=== PATIENT | female | born 1990 | race Caucasian/White ===

== ENCOUNTER 2018-11-17 16:22 | Emergency (ER) | payer SELFPAY ==
[~2018-11-17] VITALS: Ht 160 cm; Wt 90.7 kg
--- NOTE | 2018-11-17 16:32 | NUR ---
BIBRA40, FROM THE BUS STOP, HAVING PANIC ATTACK. STATES ALSO HAVING RIGHT-SIDED HEADACHE. DENIES SOB, DIZZINESS, WEAKNESS, VISION CHANGES, N/V. AOX4, AMB, VSS, RR EVEN AND UNLABORED ON RA. NO ACUTE DISTRESS NOTED. ON MONITOR AND READY FOR EVAL.
[2018-11-17] MEDS ORDERED: IBUPROFEN 600 MG TABLET PO ONE ×2 (16:43→17:00)
[2018-11-17 16:55] LABS: BASOPHILS % (AUTO) 0.2 % (0.0-2.0); EOSINOPHILS % (AUTO) 1.3 % (0.0-6.0); HEMATOCRIT 51 % (33-45); HEMOGLOBIN 16.8 g/dL (11.5-14.8); LYMPHOCYTES # (AUTO) 2.2 /CMM (0.8-4.8); LYMPHOCYTES % (AUTO) 11.6 % (20.0-44.0); MEAN CORPUSCULAR HGB CONC 33 g/dl (31.0-36.0); MEAN CORPUSCULAR VOLUME 90 fL (82-100); MONOCYTES # (AUTO) 0.7 /CMM (0.1-1.30); MONOCYTES % (AUTO) 3.6 % (2.0-12.0); NEUTROPHILS # (AUTO) 15.9 /CMM (1.8-8.9); NEUTROPHILS % (AUTO) 83.3 % (43.0-81.0); PLATELET COUNT (AUTO) 334 /CMM (150-450); RED BLOOD CELL COUNT(AUTO) 5.71 MIL/uL (4.0-5.2); WHITE BLOOD COUNT (AUTO) 19.1 K/uL (4.3-11.0)
[2018-11-17 17:15] LABS: CALCIUM, SERUM 8.5 mg/dL (8.5-10.1); CREATININE 0.8 mg/dL (0.6-1.3); POTASSIUM 3.9 mmol/L (3.5-5.1)
[2018-11-17] MEDS ORDERED: PROCHLORPERAZINE EDISYLATE 10 MG/2 ML VIAL ONE (17:51)
[2018-11-17] MEDS ORDERED: diphenhydrAMINE HCL 50 MG/ML VIAL ONE (17:51)
[2018-11-17] MEDS ORDERED: diphenhydrAMINE HCL 50 MG/ML VIAL IV ONE (18:00)
[2018-11-17] MEDS ORDERED: IV NS 0.9% 500 ML BAG IV ONE (18:00)
[2018-11-17] MEDS ORDERED: PROCHLORPERAZINE EDISYLATE 10 MG/2 ML VIAL IV ONE (18:00)
--- NOTE | 2018-11-17 18:13 | NUR ---
PT RESTING COMFORTABLY IN BED. NO COMPLAINTS AT THIS TIME. WILL CONT TO MONITOR.
--- NOTE | 2018-11-17 19:05 | NUR ---
Patient discharged to home in stable condition. Written and verbal after care instructions given. Patient verbalizes understanding of instruction.IV removed. Catheter intact and site benign. Pressure and 4x4 applied to site. No bleeding noted.
[2018-11-17 19:12] VITALS: BP 117/72
== END 2018-11-17 19:05 | disposition home or self-care (01) ==
LOC: ER 16:24
DX: R55 Syncope and collapse (principal); R51 Headache; F31.9 Bipolar disorder, unspecified
CPT/HCPCS: 36415; 80048; 85025; 93005; 96374; 96375; 99284; J0780; J1200; J7040

== ENCOUNTER 2020-09-07 07:40 | Emergency (ER) | payer OTHER ==
[~2020-09-07] VITALS: Ht 167.6 cm; Wt 99.3 kg
--- NOTE | 2020-09-07 07:56 | NUR ---
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 The patient is alert to her name at this time. Communicates verbally but the patient ahs fligts of ideas. Denies pain. In room air and denies SOB. Respiration regular and unlabored. Will continue to monitor the patient.
[2020-09-07] MEDS ORDERED: LORAZEPAM INJ 2 MG/ML VIAL ONE (08:04)
[2020-09-07] MEDS: LORAZEPAM INJ 2 MG/ML VIAL IM ONE (08:17)
--- NOTE | 2020-09-07 08:17 | NUR ---
urine collected and sent to the lab
[2020-09-07 08:40] LABS: BASOPHILS % (AUTO) 0.3 % (0.0-2.0); EOSINOPHILS % (AUTO) 0.5 % (0.0-6.0); HEMATOCRIT 42 % (33-45); HEMOGLOBIN 14.2 g/dL (11.5-14.8); LYMPHOCYTES # (AUTO) 2.3 /CMM (0.8-4.8); MEAN CORPUSCULAR HGB CONC 34 g/dl (31.0-36.0); MEAN CORPUSCULAR VOLUME 91 fL (82-100); MONOCYTES # (AUTO) 0.7 /CMM (0.1-1.30); MONOCYTES % (AUTO) 5.1 % (2.0-12.0); NEUTROPHILS # (AUTO) 9.7 /CMM (1.8-8.9); NEUTROPHILS % (AUTO) 76.1 % (43.0-81.0); PLATELET COUNT (AUTO) 272 /CMM (150-450); RED BLOOD CELL COUNT(AUTO) 4.63 MIL/uL (4.0-5.2); WHITE BLOOD COUNT (AUTO) 12.8 K/uL (4.3-11.0)
[2020-09-07 08:44] LABS: CARBON DIOXIDE 22 mmol/L (21-32); CHLORIDE 107 mmol/L (98-107); CREATININE 0.7 mg/dL (0.6-1.3); GLUCOSE 122 mg/dL (74-106); SODIUM SERUM 141 mmol/L (136-145); UREA NITROGEN, BLOOD 10 mg/dL (7-18)
[2020-09-07 08:45] LABS: BILIRUBIN,URINE Negative (NEGATIVE); COLOR,URINE YELLOW (YELLOW); LEUKOCYTE ESTERASE ,URINE Negative (NEGATIVE); NITRITE, URINE Negative (NEGATIVE); PH,URINE 5.5 (5.0-8.0); PROTEIN,URINE 30 mg/dl (NEGATIVE); UGLUCOSE Negative (NEGATIVE); UROBILINOGEN,URINE 0.2 EU/dL (0.2)
[2020-09-07 08:50] LABS: ACETAMINOPHEN 0 ug/ml (10-30); ALANINE AMINOTRANSFERASE 38 U/L (12-78); ALBUMIN 3.8 g/dL (3.4-5.0); ALCOHOL, BLOOD < 3 mg/dL (0-0); ALKALINE PHOSPHATASE 99 U/L (46-116); ASPARTATE AMINOTRANSFERASE 21 U/L (15-37); BILIRUBIN,DIRECT 0.1 mg/dL (0.0-0.2); BILIRUBIN,TOTAL 0.2 mg/dL (0.2-1.0); TOTAL PROTEIN, SERUM 7.8 g/dL (6.4-8.2)
[2020-09-07 08:54] LABS: CALCIUM, SERUM 9.4 mg/dL (8.5-10.1)
[2020-09-07 08:58] LABS: BACTERIA,URINE Moderate /HPF (None Seen); SQUAMOUS EPITHELIAL CELL,UR Moderate /HPF (None Seen); WBC,URINE 0-2 /HPF (0-3)
--- NOTE | 2020-09-07 09:44 | NUR ---
The patient is sleeping. Respiration regular and unlabored. Patient is in no apparent distress. Will continue to monitor the patient.
--- NOTE | 2020-09-07 10:36 | NUR ---
The patient is alert and oriented x3 but still with episodes of being forgetfull. Denies any distress at this time. Will continue to monitor the patient.
--- NOTE | 2020-09-07 10:59 | NUR ---
Waiting for the pharmacy to deliver Risperdal.
[2020-09-07] MEDS ORDERED: risperiDONE 0.25 MG TABLET PO ONE (11:00)
--- NOTE | 2020-09-07 11:00 | NUR ---
SS Consult: SS Consult requested for this 30-year old female who was BIBRA after the pt. was not speaking or interacting with her surroundings. The pt. is A&O X 2 and appears well-groomed. The pt. is calm & cooperative throughout interview.pt. has soft, low speech with tangential speech. Pt. is not oriented to situation or location. Pt. states that she has not been taking her psychotropic medications because she wanted a video that, brain washed me at a rastafari on how to read minds and taught me that anti-psychotic medications are bad. Pt. is delusional with possible visual hallucinations. Pt. stated, I saw my brother in the [place], with lights. Pt. is disorganized, confused and unable to plan for self-care. Per EMR, the pt.s family reported that the pt. has a hx. of Schizophrenia had been med non-compliant for about 1 month. BRITNEY called tnt line supervisorRicardo [phone] to assess this pt. Per Art, he will see this pt. FELISHA. Noted. BRITNEY notified RNWiliam.
[2020-09-07] MEDS: risperiDONE 1 MG TABLET PO ONE (11:01)
[2020-09-07] MEDS ORDERED: risperiDONE 1 MG TABLET ONE (11:01)
--- NOTE | 2020-09-07 15:24 | NUR ---
NIEVES KATZ [phone]
--- NOTE | 2020-09-07 15:28 | NUR ---
STERLING CALLED BACK AND WILL BE ON HER WAY.
--- NOTE | 2020-09-07 19:05 | NUR ---
PT EASILY AROUSABLE TO TOUCH AND MECHANICAL STIMULI, PT NOT ASNWERING QUESTIONS BUT MOANING. RESPIRATIONS EVEN AND UNLABORED. WILL CONTINUE TO MONITOR PT.
--- NOTE | 2020-09-07 19:14 | NUR ---
covid swab done and sent to the lab
--- NOTE | 2020-09-08 06:02 | NUR ---
IN BED, NOT RESPONDING WHEN SPOKEN TO. VSS.
--- NOTE | 2020-09-08 09:00 | NUR ---
THE PATIENT IS TAKING NAP, RESPONSIVE TO TACTILE STIMULI BY OPENING EYES. OFFERED BRAKFASR BUT THE PATIENT REFUSED BY COMMUNICATING MOVING HEAD. WILL CONTINUE TO MONITOR THE PATIENT.
--- NOTE | 2020-09-08 10:26 | NUR ---
PATIENT IS ACCEPTED AT [facility]. UNDER DR. HER. ROOM [address]A. PHONE # FOR REPORT [phone]
--- NOTE | 2020-09-08 10:28 | NUR ---
Pt accepted to [facility]. Accepting Psych is Dr. Morel Accepting, Tamy Hilario NP Pt will go to [place] [id number] Number for report is [phone]
--- NOTE | 2020-09-08 11:02 | NUR ---
Report given to nurse Patterson from [facility].
--- NOTE | 2020-09-08 12:17 | NUR ---
CALLED [facility] FOR TRANSPORT TO [facility] 45-60 MINUTES.
--- NOTE | 2020-09-08 13:30 | NUR ---
THE PATIENT IS TRANSFERED TO [facility] IN STABLE CONDITION AND VIA ARRANGED TRANSPO. WILL CONTINUE TO MONITOR THE PATIENT.
[2020-09-08 14:06] VITALS: BP 125/80
== END 2020-09-08 13:30 ==
LOC: ER 07:42
DX: F20.2 Catatonic schizophrenia (principal); Z20.822 Contact with and (suspected) exposure to COVID-19
CPT/HCPCS: 36415; 80048; 80076; 80143; 80307; 80320; 81001; 84703; 85025; 87086; 87426; 96372; 99285; C9803; J2060; G0480

== ENCOUNTER 2021-12-24 00:41 | Emergency (ER) | payer OTHER ==
[~2021-12-24] VITALS: Ht 160 cm; Wt 94.3 kg
[2021-12-24 01:44] VITALS: BP 123/80
[2021-12-24 03:13] LABS: BILIRUBIN,URINE NEGATIVE (NEGATIVE); COLOR,URINE YELLOW (YELLOW); LEUKOCYTE ESTERASE ,URINE MODERATE (NEGATIVE); NITRITE, URINE NEGATIVE (NEGATIVE); PH,URINE 8.5 (5.0-8.0); PROTEIN,URINE TRACE mg/dl (NEGATIVE); UGLUCOSE NEGATIVE (NEGATIVE); UROBILINOGEN,URINE 0.2 EU/dL (0.2)
[2021-12-24 03:17] LABS: BACTERIA,URINE Few /HPF (None Seen); SQUAMOUS EPITHELIAL CELL,UR Many /HPF (None Seen)
[2021-12-24] MEDS ORDERED: CEPH500T PO (03:27)
== END 2021-12-24 03:39 | disposition home or self-care (01) ==
LOC: ER 00:47
DX: N39.0 Urinary tract infection, site not specified (principal); Z79.899 Other long term (current) drug therapy
CPT/HCPCS: 81001; 84703-TC

== ENCOUNTER 2022-02-28 19:32 | Emergency (ER) | payer OTHER ==
[~2022-02-28] VITALS: Ht 160 cm; Wt 99.8 kg
[~2022-02-28 19:32] MED LIST: CEPH500T PO
--- NOTE | 2022-02-28 19:49 | NUR ---
BIBRA 61 AND [employer] FOR PSYCH EVALUATION DUE TO AGITATION. ON 5150 HOLD BY [employer]. VSS. SAFETY MEASURES IN PLACE.
[2022-02-28] MEDS ORDERED: LORAZEPAM INJ 2 MG/ML VIAL ONE (20:52)
[2022-02-28] MEDS ORDERED: HALOPERIDOL LACTATE INJ 5 MG/ML VIAL ONE (20:52)
[2022-02-28] MEDS ORDERED: diphenhydrAMINE HCL 50 MG/ML VIAL ONE (20:52)
[2022-02-28] MEDS ORDERED: diphenhydrAMINE HCL 50 MG/ML VIAL IM ONE (21:00)
[2022-02-28] MEDS ORDERED: LORAZEPAM INJ 2 MG/ML VIAL IM ONE (21:00)
[2022-02-28] MEDS ORDERED: HALOPERIDOL LACTATE INJ 5 MG/ML VIAL IM ONE (21:00)
[2022-02-28 21:14] LABS: BASOPHILS # (AUTO) 0.1 K/uL (0.0-0.2); BASOPHILS % (AUTO) 0.5 % (0.0-2.0); EOSINOPHILS % (AUTO) 1.6 % (0.0-6.0); HEMATOCRIT 43 % (33-45); HEMOGLOBIN 14.8 g/dL (11.5-14.8); LYMPHOCYTES # (AUTO) 3.1 K/uL (0.8-4.8); MEAN CORPUSCULAR HGB CONC 34 g/dl (31.0-36.0); MEAN CORPUSCULAR VOLUME 90 fL (82-100); MONOCYTES # (AUTO) 0.8 K/uL (0.1-1.30); MONOCYTES % (AUTO) 6.9 % (2.0-12.0); NEUTROPHILS # (AUTO) 7.8 K/uL (1.8-8.9); PLATELET COUNT (AUTO) 316 K/uL (150-450); RED BLOOD CELL COUNT(AUTO) 4.82 MIL/uL (4.0-5.2)
[2022-02-28 21:38] LABS: ALANINE AMINOTRANSFERASE 25 U/L (12-78); ALBUMIN 3.9 g/dL (3.4-5.0); ALCOHOL, BLOOD < 3 mg/dL (0-0); ALKALINE PHOSPHATASE 91 U/L (46-116); ASPARTATE AMINOTRANSFERASE 18 U/L (15-37); BILIRUBIN,DIRECT 0.1 mg/dL (0.0-0.2); BILIRUBIN,TOTAL 0.2 mg/dL (0.2-1.0); CALCIUM, SERUM 9.6 mg/dL (8.5-10.1); CARBON DIOXIDE 29 mmol/L (21-32); CHLORIDE 101 mmol/L (98-107); CREATININE 0.8 mg/dL (0.6-1.3); GLUCOSE 108 mg/dL (74-106); POTASSIUM 3.5 mmol/L (3.5-5.1); SODIUM SERUM 137 mmol/L (136-145); UREA NITROGEN, BLOOD 10 mg/dL (7-18)
--- NOTE | 2022-02-28 21:39 | NUR ---
COVID SWAB COLLECTED
[2022-02-28 21:48] LABS: ACETAMINOPHEN 0 ug/ml (10-30)
--- NOTE | 2022-02-28 22:58 | NUR ---
URINE COLLECTED AND SENT TO LAB
[2022-02-28 23:27] LABS: BILIRUBIN,URINE NEGATIVE (NEGATIVE); COLOR,URINE YELLOW (YELLOW); LEUKOCYTE ESTERASE ,URINE NEGATIVE (NEGATIVE); NITRITE, URINE NEGATIVE (NEGATIVE); PROTEIN,URINE NEGATIVE (NEGATIVE); UGLUCOSE NEGATIVE (NEGATIVE); UROBILINOGEN,URINE 0.2 EU/dL (0.2)
--- NOTE | 2022-03-01 09:30 | NUR ---
[employer] Consult BRITNEY was informed about 5150 hold by nursing staff. BRITNEY discussed with Dr. Archibald who stated pt. needed psych placement. BRITNEY contacted and faxed clinicals to [facility] ( , ), [facility] ( , ), [facility] ( , ) for placement. BRITNEY will follow up.
--- NOTE | 2022-03-01 13:50 | NUR ---
SW followed up for updates re placement. Admission pending. SW will follow up.
--- NOTE | 2022-03-01 15:45 | NUR ---
BRENDA FROM [facility] CALLED [phone] REQUESTING HCG RESULT FAXED TO: [phone] WILL HOLD BED.
--- NOTE | 2022-03-01 15:47 | NUR ---
Psych placement follow up: SW followed up with the following referrals: [facility] , per Mirian no beds at this time. [facility] , per Marlo they have a bed available and are just waiting for the test. Per Marlo, he called the ED and asked for it to be sent to him FELISHA. Noted. SW called ED an spoke to Kyle about preganancy test needed. [facility] , and intake stated they are pending feedback from admin and willc all SW back.
--- NOTE | 2022-03-01 16:56 | NUR ---
BRENDA [phone] PT ACCEPTED TO [facility] UNDER DR. KENYON ROOM: [facility] 15-A CALL [phone] FOR REPORT.
--- NOTE | 2022-03-01 16:59 | NUR ---
CALLED [facility] FOR TRANSPORT ETA 183 PER CHRISTINE
--- NOTE | 2022-03-01 17:23 | NUR ---
report given to Skyla BROWNING to continue care.
[2022-03-01 18:00] VITALS: BP 135/85
--- NOTE | 2022-03-01 18:11 | NUR ---
patient left in stable condition accompanied by EMT going to [facility].
== END 2022-03-01 18:11 ==
LOC: ER 19:40
DX: F29 Unspecified psychosis not due to a substance or known physiological condition (principal); F17.210 Nicotine dependence, cigarettes, uncomplicated; Z20.822 Contact with and (suspected) exposure to COVID-19
CPT/HCPCS: 99285; 96372; 85025; 80048; 80076; 84703; 81003; 36415; 87426; 80143; 80320; 80307; J2060; J1200; J1630; C9803; G0480

== ENCOUNTER 2022-07-16 15:57 | Emergency (ER) | payer OTHER ==
[~2022-07-16] VITALS: Ht 160 cm; Wt 93.0 kg
--- NOTE | 2022-07-16 19:55 | NUR ---
called for triage. no answer
[2022-07-16 20:19] VITALS: BP 121/73
--- NOTE | 2022-07-16 21:33 | NUR ---
Patient discharged to home in stable condition.
== END 2022-07-16 21:30 | disposition home or self-care (01) ==
LOC: ER 16:00
DX: R46.1 Bizarre personal appearance (principal)